=== PATIENT | male | born 1995 | race African-American/Black ===

== ENCOUNTER 2017-04-21 11:01 | Emergency (ER) | payer BC ==
[2017-04-21 11:03] VITALS: BP 135/73; PULSE 91; RESP 22; TEMP 99.1; O2SAT 97
== END 2017-04-21 13:25 | disposition left against medical advice (07) ==
LOC: NED 11:01
DX: Z53.21 Procedure and treatment not carried out due to patient leaving prior to being seen by health care provider (principal)